=== PATIENT | female | born 1955 | race Caucasian/White ===

== ENCOUNTER 2017-07-28 14:48 | Inpatient (IN) | payer MEDICARE, MEDICAID ==
[~2017-07-28] VITALS: Ht 162.6 cm; Wt 71.7 kg
--- NOTE | 2017-07-28 15:05 | NUR ---
Pt denies SI/HI at this time. Agreed to change to hospital gown.
--- NOTE | 2017-07-28 15:07 | NUR ---
Pt refused blood draw, Dr Gilbert aware. Pt also states" I don't need to use the bathroom and can't give urine."
--- NOTE | 2017-07-28 16:05 | NUR ---
Belonging list completed and placed in the chart. Pt not candidate for MRSA.
[2017-07-28] MEDS ORDERED: MAGNESIUM HYDROXIDE 30 ML LIQUID UDC PO PRN (17:00)
[2017-07-28] MEDS ORDERED: ACETAMINOPHEN 325 MG TABLET PO PRN (17:00)
[2017-07-28] MEDS ORDERED: MAG HYDROX/AL HYDROX/SIMETH 30 ML LIQUID UDC PO PRN (17:00)
[2017-07-28] MEDS ORDERED: TEMAZEPAM 7.5 MG CAPSULE PO PRN (17:00)
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
[2017-07-28 20:27] VITALS: BP 124/78
--- NOTE | 2017-07-28 22:00 | NUR ---
received to care, lying in bed, non interactive, verbally hostile, when approached. appears distracted by internal stimuli. cooperative with vital sign check, but nothing else. as of 2199, she appears to be asleep. no distress noted. will continue to monitor closely.
--- NOTE | 2017-07-29 03:00 | NUR ---
pt is now awake, sitting up at bedside. requested something to eat, but when snacks were brought to her, she stated, "youre a fuc--ng a--hole. i dont want your food. get out of here"
--- NOTE | 2017-07-29 03:30 | NUR ---
came out to the desk at 309, smelling odorous, and appearing disheveled, stating that we are keeping her here against her will. she then cursed at staff, then went back to bed. as of 329, she appears to be asleep. no distress noted.
--- NOTE | 2017-07-29 05:30 | NUR ---
assisted with shower at 0530. as of 0600, she appears to be asleep. no distress noted.
--- NOTE | 2017-07-29 06:46 | NUR ---
refused am lab draw
[2017-07-29 07:30] VITALS: BP 135/80
[2017-07-29] MEDS: BENZTROPINE MESYLATE 0.5 MG TABLET PO SCH ×2 (11:15→21:59)
[2017-07-29] MEDS: DIVALPROEX 250 MG TABLET.DR PO SCH ×4 (11:15→17:57)
[2017-07-29] MEDS: HALOPERIDOL 5 MG TABLET PO SCH ×2 (11:15→21:59)
[2017-07-29] MEDS ORDERED: HALOPERIDOL LACTATE 5 MG/1 ML VIAL IM ONE (12:15)
[2017-07-29] MEDS ORDERED: LORAZEPAM 2 MG/1 ML VIAL IM ONE (12:15)
[2017-07-29] MEDS ORDERED: diphenhydrAMINE 50 MG/1 ML VIAL IM ONE (12:15)
[2017-07-29 15:00] VITALS: BP 108/53
--- NOTE | 2017-07-29 22:00 | NUR ---
received to care, lying in bed, asleep. easy to be awakened, but falls right back to sleep, refused vital signs, fluids, and snacks. as of 2200, she continues to sleep. respirations are even and unlabored. no distress noted. will continue to monitor closely.
--- NOTE | 2017-07-30 06:00 | NUR ---
slept 8 hours, total. continues to sleep. no distress noted.
[2017-07-30 07:30] VITALS: BP 112/60
[2017-07-30 08:10] LABS: BILIRUBIN,TOTAL 0.6 mg/dL (0.2-1.0); CREATININE 0.7 mg/dL (0.6-1.3); MAGNESIUM 1.9 mg/dL (1.8-2.4); PHOSPHOROUS 3.1 mg/dL (2.5-4.9); POTASSIUM 3.4 mmol/L (3.5-5.1); TOTAL PROTEIN, SERUM 6.2 g/dL (6.4-8.2)
[2017-07-30 08:14] LABS: THYROID STIMULATING HORMONE 1.313 mIU/mL (0.358-3.740)
[2017-07-30 08:40] LABS: BASOPHILS % (AUTO) 0.7 % (0.0-2.0); EOSINOPHILS # (AUTO) 0.3 K/uL (0.0-0.7); EOSINOPHILS % (AUTO) 5.6 % (0.0-7.0); HEMATOCRIT 40.4 % (31.2-41.9); HEMOGLOBIN 13.4 g/dL (10.9-14.3); LYMPHOCYTES # (AUTO) 1.3 K/uL (20.0-40.0); LYMPHOCYTES % (AUTO) 24.1 % (20.5-51.5); MEAN CORPUSCULAR HEMOGLOBIN 29.2 uug (24.7-32.8); MEAN CORPUSCULAR HGB CONC 33 g/dL (32.3-35.6); MEAN CORPUSCULAR VOLUME 87.7 fL (75.5-95.3); MONOCYTES # (AUTO) 0.4 K/uL (2.0-10.0); MONOCYTES % (AUTO) 7.3 % (0.0-11.0); NEUTROPHILS # (AUTO) 3.2 K/uL (1.8-8.9); NEUTROPHILS % (AUTO) 62.3 % (38.5-71.5); PLATELET COUNT (AUTO) 298 K/uL (179-408); WHITE BLOOD COUNT (AUTO) 5.2 K/uL (3.8-11.8)
[2017-07-30] MEDS: DIVALPROEX 250 MG TABLET.DR PO SCH ×4 (09:08→16:40)
[2017-07-30] MEDS: HALOPERIDOL 5 MG TABLET PO SCH ×3 (09:08→23:18)
[2017-07-30] MEDS: BENZTROPINE MESYLATE 0.5 MG TABLET PO SCH ×3 (09:09→23:19)
[2017-07-30] MEDS ORDERED: POTASSIUM CHLORIDE 20 MEQ TAB.PRT.SR PO ONE (11:00)
[2017-07-30] MEDS: OMEGA-3 FATTY ACIDS/FISH OIL CAPSULE PO SCH ×2 (11:37→21:00)
[2017-07-30] MEDS: LORAZEPAM 0.5 MG TABLET PO PRN (11:37)
--- NOTE | 2017-07-30 12:22 | NUR ---
Firearms Report: Cigarette Lighter Repairer completed and submitted [facility] Firearms Report on 07/30/17
[2017-07-30 15:00] VITALS: BP 114/62
--- NOTE | 2017-07-30 15:50 | NUR ---
Initial Discharge Instructions: Patient was residing in a home where she was renting a room [[address] [place] [address]; [phone]]. Spoke with patient's landlordMelvin ([phone]) who states that patient is being evicted and cannot return. Spoke with pt's sister and mother, Xavi and Lili ([phone]). SW will continue to collaborate with pt, family, and MD regarding appropriate discharge disposition for this patient. SW will form a safe and proper discharge plan.
--- NOTE | 2017-07-30 19:30 | NUR ---
Pt received in bed, asleep. No acute distress noted. BP WNL. Tolerating room air, well. Afebrile. Safety measures implemented. Pt does not pose a danger to self at this time. No active hallucinations noted. Will cont to monitor.
[2017-07-30 20:39] VITALS: BP 136/74
--- NOTE | 2017-07-30 21:00 | NUR ---
Attempted to administer night time medications. Pt angry, states "I don't want them right now. Leave me alone."
--- NOTE | 2017-07-30 23:18 | NUR ---
Pt up to void. Requested food, given a sandwich. Pt also compliant with medications at this time. Agreed to take all night time meds. Continue to monitor.
[2017-07-31] MEDS: LORAZEPAM 0.5 MG TABLET PO PRN ×4 (00:23→16:40)
--- NOTE | 2017-07-31 00:24 | NUR ---
Pt agitated at this time, up out of bed. Ativan administered as ordered. Cont to monitor.
--- NOTE | 2017-07-31 01:00 | NUR ---
Pt now in bed, asleep. Agitation ceased. No acute distress noted.
--- NOTE | 2017-07-31 06:25 | NUR ---
Pt slept 9 hours, total. Compliant with care. No acute changes noted. All needs attended. Safety maintained.
[2017-07-31 07:30] VITALS: BP 131/83
[2017-07-31] MEDS: DIVALPROEX 250 MG TABLET.DR PO SCH ×3 (08:16→16:40)
[2017-07-31] MEDS: OMEGA-3 FATTY ACIDS/FISH OIL CAPSULE PO SCH ×2 (08:16→20:42)
[2017-07-31] MEDS: HALOPERIDOL 5 MG TABLET PO SCH ×2 (08:17→20:42)
[2017-07-31] MEDS: BENZTROPINE MESYLATE 0.5 MG TABLET PO SCH ×2 (08:17→20:41)
[2017-07-31 15:00] VITALS: BP 118/81
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
[2017-08-01 07:30] VITALS: BP 128/72
[2017-08-01] MEDS: BENZTROPINE MESYLATE 0.5 MG TABLET PO SCH ×2 (09:41→21:35)
[2017-08-01] MEDS: OMEGA-3 FATTY ACIDS/FISH OIL CAPSULE PO SCH ×2 (09:41→21:35)
[2017-08-01] MEDS: DIVALPROEX 250 MG TABLET.DR PO SCH ×3 (09:41→16:24)
[2017-08-01] MEDS: HALOPERIDOL 5 MG TABLET PO SCH ×2 (09:41→21:35)
[2017-08-01] MEDS: LORAZEPAM 0.5 MG TABLET PO PRN ×2 (09:42→16:24)
[2017-08-01 16:13] VITALS: BP 117/84
[2017-08-01 18:26] LABS: *BILIRUBIN,URIN NEGATIVE (NEGATIVE); *BLOOD, URINE NEGATIVE (NEGATIVE); *CLARITY,URINE CLEAR (CLEAR); *COLOR,URINE YELLOW (YELLOW); *KETONES,URINE TRACE (NEGATIVE); *PROTEIN,URINE NEGATIVE (NEGATIVE); *UROBILINOGEN,URINE 0.2 E.U./dl (NORMAL); LEUKOCYTE ESTERASE ,URINE NEGATIVE (NEGATIVE); NITRITE, URINE NEGATIVE (NEGATIVE); UGLUCOSE NEGATIVE (NEGATIVE)
[2017-08-01 18:28] LABS: BACTERIA,URINE FEW /HPF (NONE SEEN); RBC,URINE 0-3 /HPF (0-3); SQUAMOUS EPITHELIAL CELL,UR FEW /HPF (NONE SEEN); WBC,URINE 0-3 /HPF (0-3)
[2017-08-02 07:30] VITALS: BP 104/68
[2017-08-02 07:49] LABS: BASOPHILS # (AUTO) 0.1 K/uL (0.0-8.0); BASOPHILS % (AUTO) 0.9 % (0.0-2.0); EOSINOPHILS # (AUTO) 0.3 K/uL (0.0-0.7); EOSINOPHILS % (AUTO) 4.7 % (0.0-7.0); HEMATOCRIT 42.4 % (31.2-41.9); HEMOGLOBIN 14.2 g/dL (10.9-14.3); LYMPHOCYTES # (AUTO) 1.4 K/uL (20.0-40.0); LYMPHOCYTES % (AUTO) 21.3 % (20.5-51.5); MEAN CORPUSCULAR HEMOGLOBIN 29.2 uug (24.7-32.8); MEAN CORPUSCULAR HGB CONC 33 g/dL (32.3-35.6); MEAN CORPUSCULAR VOLUME 87.4 fL (75.5-95.3); MONOCYTES # (AUTO) 0.6 K/uL (2.0-10.0); MONOCYTES % (AUTO) 8.7 % (0.0-11.0); NEUTROPHILS # (AUTO) 4.2 K/uL (1.8-8.9); NEUTROPHILS % (AUTO) 64.4 % (38.5-71.5); PLATELET COUNT (AUTO) 325 K/uL (179-408); RED BLOOD CELL COUNT(AUTO) 4.85 MIL/uL (3.63-4.92); WHITE BLOOD COUNT (AUTO) 6.6 K/uL (3.8-11.8)
[2017-08-02 07:55] LABS: BILIRUBIN,TOTAL 0.5 mg/dL (0.2-1.0); CREATININE 0.8 mg/dL (0.6-1.3); MAGNESIUM 1.9 mg/dL (1.8-2.4); PHOSPHOROUS 3.6 mg/dL (2.5-4.9); TOTAL PROTEIN, SERUM 6.8 g/dL (6.4-8.2)
[2017-08-02] MEDS: BENZTROPINE MESYLATE 0.5 MG TABLET PO SCH ×2 (08:07→20:47)
[2017-08-02] MEDS: OMEGA-3 FATTY ACIDS/FISH OIL CAPSULE PO SCH ×2 (08:07→20:47)
[2017-08-02] MEDS: LORAZEPAM 0.5 MG TABLET PO PRN ×2 (08:07→14:01)
[2017-08-02] MEDS: HALOPERIDOL 5 MG TABLET PO SCH ×2 (08:07→20:47)
[2017-08-02] MEDS: DIVALPROEX 250 MG TABLET.DR PO SCH ×3 (08:08→17:34)
[2017-08-02 15:21] VITALS: BP 111/68
[2017-08-02 20:43] VITALS: BP 104/57
--- NOTE | 2017-08-03 02:43 | NUR ---
PT RECEIVED IN BED SLEEPING BUT EASILY AROUSED, A/O X 2, CLEAR SPEECH, NON-COMPLIANT, ANXIOUS, LABILE, ANGRY. PT REFUSED MEDS, AND WAS EASILY AGITATED WHEN ASKED TO TAKE MEDICATIONS. PT STATED "I ALREADY TOOK THOSE MEDICATIONS AT 5PM AND I WILL NOT TAKE THEM AGAIN. I DON'T NEED THOSE MEDICATIONS, I SHOULDN'T EVEN BE HERE." NURSE REINFORCED TEACHING OF MED COMPLIANCE BUT PT STATED, "I DON'T CARE WHAT THEY ARE, I REFUSE TO TAKE THEM." PT REFUSED TO TALK ANYMORE AND WENT BACK TO SLEEP. PT CAME OUT OF HER ROOM ONCE DURING SHIFT TO ASK FOR SNACKS. PT WAS GIVEN CRYSTAL CRACKERS AND WENT BACK TO BED RIGHT AFTER. WILL CONTINUE TO MONITOR AND FOLLOW PLAN OF CARE.
[2017-08-03 07:30] VITALS: BP 108/74
[2017-08-03] MEDS: LORAZEPAM 0.5 MG TABLET PO PRN ×2 (07:30→12:40)
[2017-08-03] MEDS: HALOPERIDOL 5 MG TABLET PO SCH ×2 (08:39→20:36)
[2017-08-03] MEDS: OMEGA-3 FATTY ACIDS/FISH OIL CAPSULE PO SCH ×2 (08:39→20:36)
[2017-08-03] MEDS: DIVALPROEX 250 MG TABLET.DR PO SCH ×3 (08:39→16:54)
[2017-08-03] MEDS: BENZTROPINE MESYLATE 0.5 MG TABLET PO SCH ×2 (08:39→20:36)
--- NOTE | 2017-08-03 10:22 | NUR ---
Discharge Planning Note: Spoke with pt about her wishes for discharge planning. Patient stated that she would not like to go back to where she was before coming to the hospital and stated that she would like a room to rent. SW educated pt that a room to rent could not be found for her after her hospitalization, and SW educated pt on placement options. Patient reported she could afford a B&C and was agreeable for this securities underwriter to look for placement. Pt appeared guarded with mumbled speech. Pt denied current SI/HI and stated, "I just want to get out of here." SW will continue looking for B&C placement.
[2017-08-03 16:48] VITALS: BP 113/77
[2017-08-03 20:34] VITALS: BP 114/63
[2017-08-04 07:30] VITALS: BP_SYST 107; BP_SYST 148; BP_DIAS 55; BP_DIAS 89
[2017-08-04] MEDS: LORAZEPAM 0.5 MG TABLET PO PRN ×3 (07:55→22:09)
[2017-08-04] MEDS: DIVALPROEX 250 MG TABLET.DR PO SCH ×3 (08:23→17:13)
[2017-08-04] MEDS: BENZTROPINE MESYLATE 0.5 MG TABLET PO SCH ×2 (08:23→21:09)
[2017-08-04] MEDS: OMEGA-3 FATTY ACIDS/FISH OIL CAPSULE PO SCH ×2 (08:23→21:08)
[2017-08-04] MEDS: HALOPERIDOL 5 MG TABLET PO SCH ×2 (08:24→21:09)
[2017-08-04 16:23] VITALS: BP 115/76
[2017-08-04 20:00] VITALS: BP 106/63
--- NOTE | 2017-08-04 22:00 | NUR ---
received to care, lying in bed, isolative, but compliant with medications, snack, and staff direction. as of 2200,she remains awake. no distress noted. will continue to monitor closely.
--- NOTE | 2017-08-04 22:09 | NUR ---
PRN ativan given for anxiety
--- NOTE | 2017-08-04 22:30 | NUR ---
appears to be asleep. no distress noted. will continue to monitor closely.
[2017-08-05 07:30] VITALS: BP 108/63
[2017-08-05] MEDS: HALOPERIDOL 5 MG TABLET PO SCH (09:36)
[2017-08-05] MEDS: OMEGA-3 FATTY ACIDS/FISH OIL CAPSULE PO SCH (09:36)
[2017-08-05] MEDS: DIVALPROEX 250 MG TABLET.DR PO SCH ×2 (09:37→13:28)
[2017-08-05] MEDS: BENZTROPINE MESYLATE 0.5 MG TABLET PO SCH (09:37)
--- NOTE | 2017-08-05 12:22 | NUR ---
Discharge Note: Patient will be discharged to the pick-up location for [facility] [[address] [place] [address]; [phone]] via taxi at 5pm. [facility] address is: [address], [place] [address]. Patient is refusing SNF and B&C placement, even though it was offered to her. Patient is also refusing to involve her family in her care. Spoke with Acacia at the winter [facility] Hotline ( ) who confirmed that the usp is still open and the pick-up locations are still valid. SW left message for pt's mother, Lili ([phone]) and pt's sister Xavi ([phone]) to alert about patient being discharged. Patient was given contact information for Utilization Management Um Nurse, Clarita ([phone]) and stated that she will follow-up with her to find B&C placements in the future. Patient will follow-up with her Primary Care Physician Dr. Barry Price [[address], [address] [place] [address]; [phone]]. Patient was given list of outpatient Psychiatrist referrals as well. Patient was provided outpatient mental health resources including, [facility] , [facility] , and the National Suicide Prevention Lifeline . Patient was provided with a brief substance abuse intervention and referred to [facility] , [facility] , and [facility] . Patient was encouraged to attend a Narcotics Anonymous meeting on August 06 at 7:15pm [[facility]: [facility] [[address] [address]], as well as an Alcoholics Anonymous Meeting at 9am on August 06 [[address] [facility] [address]]. Patient was provided with the homeless usp packet, which includes a list of emergency shelters, housing resources, drop in centers, and showers/hot meals centers. This also included the Homeless Information Hotline (826)-735-4765(661)-854-4178 [address], [place] for [employer] (483)- 199-6260, and the [facility] [phone].
--- NOTE | 2017-08-05 17:10 | NUR ---
Gps/Lead Burner Supervisor- Discharged to [facility] via taxi/voucher. Reviewed medications/prescriptions, safety reviewed emphasized, follow up with Medical Doctor, Psychiatrist, referral arranged per Radio Engineering Teacher, patient verbalized understanding.
== END 2017-08-05 17:20 | disposition home or self-care (01) | DRG 885 ==
LOC: ER 14:51 → GPS 16:13
PROVIDERS: ADMIT Psychiatry & Neurology Psychiatry; ATTEND Internal Medicine
DX: F20.0 Paranoid schizophrenia (principal); E44.0 Moderate protein-calorie malnutrition; Z68.27 Body mass index [BMI] 27.0-27.9, adult; E87.6 Hypokalemia; E78.00 Pure hypercholesterolemia, unspecified; R73.9 Hyperglycemia, unspecified; F32.9 Major depressive disorder, single episode, unspecified; R45.4 Irritability and anger
CPT/HCPCS: 36415; 80164; 83735; 84100; 84443; 85025; 87086; A4663; J1200; J1630; J2060; J3490